=== PATIENT | male | born 1970 | race Caucasian/White ===

== ENCOUNTER 2017-12-08 08:45 | Day surgery (SDC) | payer OTHER ==
[2017-12-08] MEDS ORDERED: CEFAZOLIN 2 GM/50 ML (PMX) 50 ML IVPB (09:00)
[2017-12-08] MEDS: SOD CHLORIDE 0.9% 1,000 ML IV (09:49)
[2017-12-08] MEDS ORDERED: HYDROmorphONE 1 MG/5 ML IV SYRINGE IV (10:30)
[2017-12-08] MEDS ORDERED: DIPHENHYDRAMINE 50 MG INJ IV (10:30)
[2017-12-08] MEDS ORDERED: LEVALBUTEROL (NEB) 0.63 MG/3 ML AMP HHN (10:30)
[2017-12-08] MEDS ORDERED: ALBUTEROL 0.083% (NEB) 2.5 MG/3 ML AMP HHN (10:30)
[2017-12-08] MEDS ORDERED: FENTAnyl 50 MCG/ML VIAL IV ×2 (10:30)
[2017-12-08] MEDS ORDERED: METOCLOPRAMIDE 10 MG INJ IV (10:30)
[2017-12-08] MEDS ORDERED: PROVENTIL HFA 6.7GM INHALER (10:48)
[2017-12-08] MEDS ORDERED: FENTAnyl 50 MCG/ML VIAL (10:48)
[2017-12-08] MEDS ORDERED: DEXAMETHASONE 4 MG/ML 1 ML INJ (11:09)
[2017-12-08] MEDS ORDERED: CLINDAMYCIN 900 MG/D5W (PMX) 50 ML IVPB (11:12)
[2017-12-08] MEDS ORDERED: SUCCINYLCHOLINE CHLORIDE 100 MG/5 ML SYG IV (11:12)
[2017-12-08] MEDS ORDERED: PROPOFOL 20 ML (11:12)
[2017-12-08] MEDS ORDERED: LIDOCAINE 100 MG SYRINGE (11:12)
[2017-12-08] MEDS ORDERED: ROCURONIUM 50 MG INJ (11:12)
[2017-12-08] MEDS ORDERED: SUGAMMADEX SODIUM 200 MG/2 ML VIAL IV (11:12)
[2017-12-08] MEDS ORDERED: PHENYLephrine (100 MCG/ML) 5ML SYG (11:13)
[2017-12-08] MEDS: BUPIVACAINE 0.5%/EPI (SDV) 30 ML INJ (11:26)
[2017-12-08] MEDS: METHYLENE BLUE 1% 10 ML INJ (11:34)
[2017-12-08] MEDS: ONDANSETRON 4 MG INJ IV (12:04)
[2017-12-08] MEDS: HYDROmorphONE 1 MG/5 ML IV SYRINGE IV ×2 (12:04→13:05)
== END 2017-12-08 14:40 | disposition home or self-care (01) ==
LOC: SDS 08:45
DX: K60.3 Anal fistula (principal)
CPT/HCPCS: 45330

== ENCOUNTER → 2018-01-20 | Outpatient (CLI) | payer OTHER ==
[~2018-01-20] MED LIST: IOHEXOL 300MG/ML 30 ML BTL
== END | disposition home or self-care (01) ==
LOC: RAD 09:09
DX: K60.3 Anal fistula (principal)
CPT/HCPCS: 76080